=== PATIENT | female | born 1955 | race Caucasian/White ===

== ENCOUNTER → 2016-12-12 | Outpatient (CLI) | payer MEDICARE ==
[~2016-12-12] MED LIST: ALPR0.5T99 PO; AUGM875 PO; BUPR150CR PO; BUPR150T3 PO; CEPH500C PO; CLON2TAB PO; DICL50 PO; DICY1TAB26 PO; GABA300 PO; HYDR-2768 PO; HYDR25TA5 PO; LIBRAX PO; LOMO PO; LOMO2.5T PO; METR250; NEUR300C PO; PERC10TA27 PO; PHEN12.5 PO; POTA-163 PO; PREV15CA15 PO; PREV30CA36 PO; PROM25TA5 PO; SERT-129 PO; SULF400T20 PO; SULF500T35 PO; TYLETAB36 PO; VITA500030 CHEW; VOLTAREN PO; WELC625T2 PO; XANA1TAB2 PO
[2016-12-12 13:05] LABS: AUTOMATED NEUTROPHIL # 3.5 TH/MM3 (1.8-7.7); BASOPHIL % 0.7 % (0.0-2.0); EOSINOPHIL # 0.2 TH/MM3 (0-0.4); EOSINOPHIL % 3.7 % (0.0-4.0); HEMATOCRIT 39.8 % (35.0-46.0); LYMPH % 27.7 % (9.0-44.0); LYMPHOCYTE # 1.6 TH/MM3 (1.0-4.8); MEAN CELL VOLUME 85.5 FL (80.0-100.0); MEAN CORPUSCULAR HEMOGLOBIN 28.7 PG (27.0-34.0); MEAN CORPUSCULAR HGB CONC 33.5 % (32.0-36.0); NEUT % 60.9 % (16.0-70.0); PLATELET COUNT 212 TH/MM3 (150-450); RED BLOOD COUNT 4.65 MIL/MM3 (4.00-5.30); RED CELL DISTRIBUTION WIDTH 15.7 % (11.6-17.2); WHITE BLOOD COUNT 5.8 TH/MM3 (4.0-11.0)
[2016-12-12 13:15] LABS: HEMO FLAGS AUTO DIFF
[2016-12-12 13:22] LABS: ANION GAP 8 MEQ/L (5-15); AST (GOT) 12 U/L (15-37); BICARBONATE 27.3 MEQ/L (21.0-32.0); BLOOD UREA NITROGEN 21 MG/DL (7-18); CHLORIDE 104 MEQ/L (98-107); GLOMERULAR FILTRATION RATE 58 ML/MIN (>89); GLUCOSE,FASTING 87 MG/DL (74-99); POTASSIUM 3.9 MEQ/L (3.5-5.1); SODIUM (NA) 139 MEQ/L (136-145)
[2016-12-12 13:45] LABS: ALKALINE PHOSPHATASE 79 U/L (45-117); ALT (GPT) 22 U/L (10-53); HDL CHOLESTEROL 37.6 MG/DL (40.0-60.0); LDL CHOLESTEROL 93 MG/DL (0-99); THYROXINE (T4) 10.9 MCG/DL (4.8-13.9); TOTAL BILIRUBIN ADULT 0.5 MG/DL (0.2-1.0)
[2016-12-12 14:10] LABS: PLATELET ESTIMATE SMEAR NORMAL (NORMAL); PLATELET MORPHOLOGY NORMAL (NORMAL); SCAN/DIFF AUTO DIFF CONFIRMED
[2016-12-12 15:39] LABS: HEMOGLOBIN A1a 0.8 %; HEMOGLOBIN A1b 1.3 %; HEMOGLOBIN Ao 87.4 %; HEMOGLOBIN LA1C 1.9 %; HEMOGLOBIN P3 4.7 %
== END ==
LOC: PLAB 11:22
PROVIDERS: ATTEND Family Medicine
DX: I10 Essential (primary) hypertension (principal); E78.2 Mixed hyperlipidemia; E03.8 Other specified hypothyroidism; E55.9 Vitamin D deficiency, unspecified; Z79.899 Other long term (current) drug therapy
CPT/HCPCS: 36415; 80053; 80061; 82306; 83036; 84436; 84443; 84480; 85025

== ENCOUNTER 2017-01-26 12:05 | Observation (INO) | payer MEDICARE ==
[2017-01-26] VITALS (8 sets, daily range): BP systolic 116–127; BP diastolic 57–81; PULSE 82–99; RESP 16–19; TEMP 98.8–98.9; O2SAT 92–100
[~2017-01-26] VITALS: Ht 165.1 cm; Wt 178.4 kg
[~2017-01-26 12:05] MED LIST changes: -BUPR150CR PO; -CEPH500C PO; -HYDR25TA5 PO; -LOMO2.5T PO; -NEUR300C PO; -POTA-163 PO; -PREV15CA15 PO; -PROM25TA5 PO; -SERT-129 PO; -TYLETAB36 PO; -VITA500030 CHEW; -VOLTAREN PO; -XANA1TAB2 PO
[2017-01-26] MEDS ORDERED: SULFAMETHOXAZOLE-TRIMETHOPRIM DS 800-160 MG TAB PO ONE (12:30)
[2017-01-26] MEDS ORDERED: ACETAMINOPHEN/HYDROcodone 325 MG/5 MG TAB PO ONE (12:30)
[2017-01-26] MEDS ORDERED: ASPIRIN 325 MG TAB PO ONE (12:30)
[2017-01-26] MEDS ORDERED: SODIUM CHLORIDE 0.9% FLUSH 10 ML FLUSH IVF PRN (12:30)
--- NOTE | 2017-01-26 12:39 | PD ---
HPI Chief Complaint: Chest Pain Time Seen by Provider: 12:14 Travel History International Travel<30 days: No Contact w/Intl Traveler<30days: No Traveled to known affect area: No History of Present Illness HPI This patient complains of an infected lesion on her left foot. She's had a corn -type lesion on the left foot that she's had for several months. However does become reddened and more painful lately. However she also mentioned she had 2 different spells of chest pain this morning. Located in the left upper chest. Each lasted about 2 minutes and resolved. No alleviating factors. It was not exertional. She denies history of cardiac disease. She said she had a normal stress test many years ago and nothing recent. No shortness of breath or fever. Severity was moderate. PFSH Past Medical History Arthritis: Yes Asthma: No Autoimmune Disease: No Blood Disorders: No Anxiety: Yes Depression: Yes Heart Rhythm Problems: No Cancer: Yes (RIGHT BREAST MARCH 2007, SKIN CANCER APRIL 2007) Cardiovascular Problems: Yes High Cholesterol: No Chemotherapy: No Chest Pain: No Congestive Heart Failure: No COPD: No Cerebrovascular Accident: No Diabetes: No Diminished Hearing: No Diverticulitis: Yes Endocrine: No Fibromyalgia: Yes Gastrointestinal Disorders: Yes (IBS, COLITIS, E. COLI SINCE NOVEMBER) Glaucoma: No Genitourinary: Yes Headaches: Yes Hepatitis: No Hiatal Hernia: Yes Hypertension: Yes Immune Disorder: Yes Implanted Vascular Access Dvce: Yes Musculoskeletal: Yes (LEFT LEG SWELLING SOMETIMES) Neurologic: Yes (PERIPHERAL NEUROPATHY, FROM SHINGLES) Psychiatric: Yes Reproductive: No Respiratory: No Immunizations Current: No Migraines: Yes Radiation Therapy: No Seizures: No Sickle Cell Disease: No Thyroid Disease: No Menopausal: Yes Past Surgical History Abdominal Surgery: Yes (HERNIA REPAIR WITH MESH) Body Medical Devices: 2005 HERNIA REPAIR MESH. Cardiac Surgery: No Cholecystectomy: Yes Eye Surgery: Yes (CATARACTS) Gynecologic Surgery: Yes (TUMOR RT OVARY) Hysterectomy: Yes Oral Surgery: No Pacemaker: No Other Surgery: Yes (SKIN CANCER REMOVED RT BREAST 05/13/2007) Social History Alcohol Use: No Tobacco Use: No Substance Use: No Allergies-Medications (Allergen,Severity, Reaction): Coded Allergies: Banana (Verified Allergy, Severe, RASH, 01/26/17) Levaquin (Verified Allergy, Intermediate, SEVERE DIAHREA, SEVERE NAUSEA, ) Reported Meds & Prescriptions Reported Meds & Active Scripts Active Reported Sertraline (Sertraline HCl) 100 Mg Tab 100 Mg PO BID Clonazepam 2 Mg Tab 2 Mg PO HS Xanax (Alprazolam) 1 Mg Tab 1 Mg PO Q8H PRN Wellbutrin SR 12 HR (Bupropion HCl) 150 Mg Tab 150 Mg PO Q12HR Tylenol-Codeine #4 (Acetaminophen-Codeine) 300-60 mg Tab 1 Tab PO Q4H PRN Phenergan (Promethazine HCl) 25 Mg Tab 25 Mg PO DIRECTED PRN Lomotil (Diphenoxylate-Atropine) 2.5-0.025 Mg Tab 1 Tab PO DIRECTED PRN Librax (Chlordiazepoxide/Clidinium) 5-2.5 Mg Cap 1 Cap PO DIRECTED Neurontin (Gabapentin) 300 Mg Cap 3 Cap PO BID Vitamin D3 (Cholecalciferol) 5,000 Unit Chew 5,000 Units CHEW DAILY [Voltaren] 75 Mg PO BID Prevacid (Lansoprazole) 15 Mg Capdr 20 Mg PO DAILY Potassium Chloride ER (Potassium Chloride) 20 Meq Tab 20 Meq PO TID Hydrochlorothiazide 25 Mg Tab 25 Mg PO DAILY Review of Systems General / Constitutional: No: Fever Eyes: No: Visual changes HENT: No: Headaches Cardiovascular: Positive: Chest Pain or Discomfort Respiratory: No: Shortness of Breath Gastrointestinal: No: Abdominal Pain Genitourinary: No: Dysuria Musculoskeletal: Positive: Pain Skin: No Rash Neurologic: No: Weakness Psychiatric: No: Depression Endocrine: No: Polydipsia Hematologic/Lymphatic: No: Easy Bruising Physical Exam Narrative GENERAL: Well-nourished, well-developed patient in no apparent distress. SKIN: Warm and dry. HEAD: Atraumatic. Normocephalic. EYES: Pupils equal and round. No scleral icterus. No injection or drainage. ENT: No nasal bleeding or discharge. Mucous membranes pink and moist. NECK: Trachea midline. No JVD. CARDIOVASCULAR: Regular rate and rhythm. No murmur appreciated. RESPIRATORY: No accessory muscle use. Clear to auscultation. Breath sounds equal bilaterally. GASTROINTESTINAL: Abdomen soft, non-tender, nondistended. Hepatic and splenic margins not palpable. Morbidly obese MUSCULOSKELETAL: No obvious deformities. No clubbing. No cyanosis. No edema. She has a heaped up area of thickened skin on the mid medial margin of the left foot with some surrounding macular erythema. No fluctuance or drainage. NEUROLOGICAL: Awake and alert. No obvious cranial nerve deficits. Motor grossly within normal limits. Normal speech. PSYCHIATRIC: Appropriate mood and affect; insight and judgment normal. Data Data Last Documented VS Vital Signs Date Time Temp Pulse Resp B/P Pulse Ox O2 Delivery O2 Flow Rate FiO2 01/26/17 12:50 94 01/26/17 12:48 99 16 Room Air 01/26/17 12:05 98.8 127/77 Orders Electrocardiogram (01/26/17 12:24) Basic Metabolic Panel (Bmp) (01/26/17 12:24) Ckmb (Isoenzyme) Profile (01/26/17 12:24) Complete Blood Count With Diff (01/26/17 12:24) Prothrombin Time / Inr (Pt) (01/26/17 12:24) Act Partial Throm Time (Ptt) (01/26/17 12:24) Troponin I (01/26/17 12:24) Chest, Single Ap (01/26/17 12:24) Ecg Monitoring (01/26/17 12:24) Iv Access Insert/Monitor (01/26/17 12:24) Oximetry (01/26/17 12:24) Aspirin (Aspirin) (01/26/17 12:30) Sodium Chloride 0.9% Flush (Ns Flush) (01/26/17 12:30) Acetamin-Hydrocod 325-5 Mg (Baxter 5-325 (01/26/17 12:30) Sulfamet-Trimeth Ds 800-160 Mg (Bactrim (01/26/17 12:30) Place In Observation (01/26/17 13:27) Activity Bed Rest With Brp (01/26/17 13:27) Vital Signs (Adult) Q4H (01/26/17 13:27) Cardiac Rhythm .As Directed (01/26/17 13:27) ^ Notify Dr: Other .PRN (01/26/17 13:27) ^ Notify . Parameters (01/26/17 13:27) Resp Oxygen Nasal Cannula (01/26/17 ) Diet Heart Healthy (01/26/17 Lunch) Ckmb (Isoenzyme) Profile (01/26/17 15:30) Ckmb (Isoenzyme) Profile (01/26/17 18:30) Troponin I (01/26/17 15:30) Troponin I (01/26/17 18:30) Electrocardiogram (01/26/17 15:30) Electrocardiogram (01/26/17 18:30) ^ Obtain (01/26/17 13:27) Sodium Chloride 0.9% Flush (Ns Flush) (01/26/17 13:30) Sodium Chloride 0.9% Flush (Ns Flush) (01/26/17 21:00) Acetaminophen (Tylenol) (01/26/17 13:30) Ondansetron Inj (Zofran Inj) (01/26/17 13:30) Pantoprazole (Protonix) (01/27/17 09:00) Nitroglycerin Sl (Nitrostat Sl) (01/26/17 13:30) Aspirin (Aspirin) (01/27/17 09:00) Grab Hooker / Telemetry KATIA.Q8H (01/26/17 13:27) Scd Bilateral/Knee High KATIA.BID (01/26/17 13:27) Jean Bilateral/Knee High KATIA.QSHIFT (01/26/17 13:27) Labs Laboratory Tests Test 01/26/17 12:30 White Blood Count 11.7 TH/MM3 Red Blood Count 4.57 MIL/MM3 Hemoglobin 13.2 GM/DL Hematocrit 39.1 % Mean Corpuscular Volume 85.6 FL Mean Corpuscular Hemoglobin 28.9 PG Mean Corpuscular Hemoglobin 33.7 % Concent Red Cell Distribution Width 14.9 % Platelet Count 212 TH/MM3 Mean Platelet Volume 7.8 FL Neutrophils (%) (Auto) 91.0 % Lymphocytes (%) (Auto) 2.7 % Monocytes (%) (Auto) 4.1 % Eosinophils (%) (Auto) 0.0 % Basophils (%) (Auto) 2.2 % Neutrophils # (Auto) 10.6 TH/MM3 Lymphocytes # (Auto) 0.3 TH/MM3 Monocytes # (Auto) 0.5 TH/MM3 Eosinophils # (Auto) 0.0 TH/MM3 Basophils # (Auto) 0.3 TH/MM3 CBC Comment DIFF FINAL Differential Comment Prothrombin Time 11.2 SEC Prothromb Time International 1.0 RATIO Ratio Activated Partial 25.7 SEC Thromboplast Time Sodium Level 139 MEQ/L Potassium Level 3.1 MEQ/L Chloride Level 100 MEQ/L Carbon Dioxide Level 30.8 MEQ/L Anion Gap 8 MEQ/L Blood Urea Nitrogen 17 MG/DL Creatinine 1.10 MG/DL Estimat Glomerular Filtration 51 ML/MIN Rate Random Glucose 148 MG/DL Calcium Level 8.7 MG/DL Total Creatine Kinase 91 U/L Troponin I 0.02 NG/ML MDM Medical Decision Making Medical Screen Exam Complete: Yes Emergency Medical Condition: Yes Medical Record Reviewed: Yes Differential Diagnosis Differential diagnosis includes DE, angina, pericarditis, pleurisy, GERD, anxiety. Narrative Course I have reviewed the patient's electronic medical record. Patient has not been here for many years. No chest pain evaluations. I reviewed her EKG on file from 2010 but [address] depressions in lateral leads IV placed I reviewed the EKG which shows sinus rhythm without ST elevation. However there are some downsloping ST depression in V4 and V5 I reviewed the chest x-ray which shows compensated cardiomegaly Extended cardiac monitoring shows sinus rhythm without ectopy CBC is normal Metabolic profile is normal CK is normal Troponin is normal Coagulation studies are normal I gave her an aspirin and a pain pill and a Bactrim DS I reviewed the case in detail with hospitalist's and patient will be an observation in the chest pain center to rule out cardiac cause of her symptoms. Significance of her EKG findings is unclear. Currently pain-free Diagnosis Primary Impression: Chest pain in adult Admitting Information Admitting Physician Requests: Observation Mars Walter MD Jan 26, 2017 12:39
[2017-01-26 12:41] LABS: AUTOMATED NEUTROPHIL # 10.6 TH/MM3 (1.8-7.7); BASOPHIL # 0.3 TH/MM3 (0-0.2); BASOPHIL % 2.2 % (0.0-2.0); HEMATOCRIT 39.1 % (35.0-46.0); LYMPH % 2.7 % (9.0-44.0); LYMPHOCYTE # 0.3 TH/MM3 (1.0-4.8); MEAN CELL VOLUME 85.6 FL (80.0-100.0); MEAN CORPUSCULAR HEMOGLOBIN 28.9 PG (27.0-34.0); MEAN CORPUSCULAR HGB CONC 33.7 % (32.0-36.0); MONO % 4.1 % (0.0-8.0); PLATELET COUNT 212 TH/MM3 (150-450); RED BLOOD COUNT 4.57 MIL/MM3 (4.00-5.30); RED CELL DISTRIBUTION WIDTH 14.9 % (11.6-17.2); WHITE BLOOD COUNT 11.7 TH/MM3 (4.0-11.0)
[2017-01-26 12:47] LABS: HEMO FLAGS DIFF FINAL
[2017-01-26 12:52] LABS: POTASSIUM 3.1 MEQ/L (3.5-5.1)
[2017-01-26 12:55] LABS: BICARBONATE 30.8 MEQ/L (21.0-32.0)
[2017-01-26 12:58] LABS: APTT (PATIENT) 25.7 SEC (24.3-30.1); PROTHROMBIN TIME - PATIENT 11.2 SEC (9.8-11.6)
--- NOTE | 2017-01-26 12:58 | RADHPO ---
EXAM DATE/TIME: 01/26/2017 12:38 [facility] COMPARISON: No previous studies available for comparison. INDICATIONS : Cough, chest discomfort. MEDICAL HISTORY : None. SURGICAL HISTORY : None. ENCOUNTER: Initial ACUITY: 2 days PAIN SCORE: 2/10 LOCATION: Bilateral chest FINDINGS: A single view of the chest demonstrates the lungs to be symmetrically aerated without evidence of mas s, infiltrate or effusion. Heart size is prominent but well compensated. Osseous structures are inta ct. CONCLUSION: 1. Heart size is prominent but well compensated. 2. Lungs are clear. Gurinder Arechiga MD on January 26, 2017 at 12:55 Board Certified Radiologist. This report was verified electronically.
[2017-01-26] MEDS ORDERED: CLON2TAB PO (13:00)
[2017-01-26] MEDS ORDERED: POTA-163 PO (13:00)
[2017-01-26] MEDS ORDERED: TYLETAB36 PO (13:00)
[2017-01-26] MEDS ORDERED: VITA500030 CHEW (13:00)
[2017-01-26] MEDS ORDERED: PREV15CA15 PO (13:00)
[2017-01-26] MEDS ORDERED: PROM25TA5 PO (13:00)
[2017-01-26] MEDS ORDERED: HYDR25TA5 PO (13:00)
[2017-01-26] MEDS ORDERED: BUPR150CR PO (13:00)
[2017-01-26] MEDS ORDERED: XANA1TAB2 PO (13:00)
[2017-01-26] MEDS ORDERED: SERT-129 PO ×2 (13:00)
[2017-01-26] MEDS ORDERED: LIBRAX PO (13:00)
[2017-01-26] MEDS ORDERED: VOLTAREN PO (13:00)
[2017-01-26] MEDS ORDERED: LOMO2.5T PO (13:00)
[2017-01-26] MEDS ORDERED: NEUR300C PO (13:00)
[2017-01-26] MEDS ORDERED: NITROGLYCERIN 0.4 MG SL 25 TABS/BTL SL PRN (13:30)
[2017-01-26] MEDS ORDERED: SODIUM CHLORIDE 0.9% FLUSH 10 ML FLUSH IV FLUSH PRN ×2 (13:30→17:00)
[2017-01-26] MEDS ORDERED: ONDANSETRON HCL 4 MG/2 ML VIAL IV PRN (13:30)
--- NOTE | 2017-01-26 15:12 | HHI.HP ---
[facility] Primary Care Physician Mann Parra, DO Admission Diagnosis chest pain Diagnoses: Travel History International Travel<30 Days: No Contact w/Intl Traveler <30 Da: No Traveled to Known Affected Are: No History of Present Illness This report is in ERROR Please disregard this report and all prior copies ! This report is in ERROR Please disregard this report and all prior copies ! This report is in ERROR Please disregard this report and all prior copies ! Past Family Social History Allergies: Coded Allergies: Banana (Verified Allergy, Severe, RASH, 01/26/17) Levaquin (Verified Allergy, Intermediate, SEVERE DIAHREA, SEVERE NAUSEA, ) Physical Exam Vital Signs Vital Signs Date Time Temp Pulse Resp B/P Pulse Ox O2 Delivery O2 Flow Rate FiO2 01/26/17 12:50 94 01/26/17 12:48 99 16 94 Room Air 01/26/17 12:05 98.8 99 16 127/77 99 Laboratory Laboratory Tests Test 01/26/17 12:30 White Blood Count 11.7 Red Blood Count 4.57 Hemoglobin 13.2 Hematocrit 39.1 Mean Corpuscular Volume 85.6 Mean Corpuscular Hemoglobin 28.9 Mean Corpuscular Hemoglobin 33.7 Concent Red Cell Distribution Width 14.9 Platelet Count 212 Mean Platelet Volume 7.8 Neutrophils (%) (Auto) 91.0 Lymphocytes (%) (Auto) 2.7 Monocytes (%) (Auto) 4.1 Eosinophils (%) (Auto) 0.0 Basophils (%) (Auto) 2.2 Neutrophils # (Auto) 10.6 Lymphocytes # (Auto) 0.3 Monocytes # (Auto) 0.5 Eosinophils # (Auto) 0.0 Basophils # (Auto) 0.3 CBC Comment DIFF FINAL Differential Comment Prothrombin Time 11.2 Prothromb Time International 1.0 Ratio Activated Partial 25.7 Thromboplast Time Sodium Level 139 Potassium Level 3.1 Chloride Level 100 Carbon Dioxide Level 30.8 Anion Gap 8 Blood Urea Nitrogen 17 Creatinine 1.10 Estimat Glomerular Filtration 51 Rate Random Glucose 148 Calcium Level 8.7 Total Creatine Kinase 91 Troponin I 0.02 Result Diagram: 01/26/17 1230 01/26/17 123 Jaclyn Montenegro Jan 26, 2017 15:12 Troponin I 0.02 Result Diagram: 01/26/17 1230 01/26/17 Katie0 Jaclyn Montenegro Jan 26, 2017 15:12
--- NOTE | 2017-01-26 16:49 | HHI.PR ---
Addendum to Inpatient Note Addendum Reason: Additional Documentation Additional Information Patient was evaluated by Dr. Rodriguez and myself as the patient was initially admitted to chest pain center, but we were informed by Dr. Parra, patient's PCP, that he is going to take over care of the patient and he will do H&P. We were informed Dr. Rock is also seeing the patient. Jaclyn Montenegro Jan 26, 2017 16:49
[2017-01-26] MEDS: ASPIRIN EC 81 MG TABEC PO SCH (17:00)
[2017-01-26] MEDS ORDERED: PROMETHAZINE HCL 25 MG TAB PO PRN (17:00)
[2017-01-26] MEDS ORDERED: ONDANSETRON HCL 4 MG/2 ML VIAL IVP PRN (17:00)
[2017-01-26] MEDS ORDERED: POTASSIUM CHLORIDE 20 MEQ CONTROLLED RELEASE TAB PO ONE (17:30)
--- NOTE | 2017-01-26 18:27 | HHI.HP ---
History of Present Illness Primary Care Physician Mann Parra, DO Admission Diagnosis chest pain Diagnoses: History of Present Illness pt came to ED with foot ulcer pain while in ED she mentioned that she had had a cough x 3 weeks and just today she had chest pain with cough she denies sob diaphoresis or exerrtional dyspena Review of Systems Cardiovascular: COMPLAINS OF: Chest pain Integumentary: COMPLAINS OF: Abnormal pigmentation, Pruritus, Rash, Nail changes, Breast masses, Breast skin changes, Nipple discharge Past Family Social History Allergies: Coded Allergies: Banana (Verified Allergy, Severe, RASH, 01/26/17) Levaquin (Verified Allergy, Intermediate, SEVERE DIAHREA, SEVERE NAUSEA, ) Past Medical History morbid obesity severe chronic lymphadema anemia of chronic disease depression hypertension IBS diabetes Past Surgical History bilateral shoulder repairs cholecystectomy Reported Medications Current Medications Medications (Trade) Dose Ordered Sig/Karen Route PRN Reason Start Time Stop Time Status Last Admin Dose Admin Sodium Chloride (NS Flush) 2 ml UNSCH PRN IV FLUSH FLUSH AFTER USING IV ACCESS 01/26/17 13:30 Sodium Chloride (NS Flush) 2 ml BID IV FLUSH 01/26/17 21:00 Acetaminophen (Tylenol) 500 mg Q4H PRN PO HEADACHE 01/26/17 13:30 Ondansetron HCl (Zofran Inj) 4 mg Q6H PRN IV NAUSEA 01/26/17 13:30 Pantoprazole Sodium (Protonix) 40 mg DAILY PO 01/27/17 09:00 Nitroglycerin (Nitrostat Sl) 0.4 mg Q5M PRN SL CHEST PAIN 01/26/17 13:30 Aspirin (Aspirin) 325 mg DAILY PO 01/27/17 09:00 Sodium Chloride (NS Flush) 2 ml UNSCH PRN IV FLUSH FLUSH AFTER USING IV ACCESS 01/26/17 17:00 Sodium Chloride (NS Flush) 2 ml BID IV FLUSH 01/26/17 21:00 Ondansetron HCl (Zofran Inj) 4 mg Q6H PRN IVP NAUSEA OR VOMITING 01/26/17 17:00 Promethazine HCl (Phenergan) 25 mg Q4H PRN PO NAUSEA 01/26/17 17:00 01/26/17 17:18 Aspirin (Ecotrin Ec) 81 mg DAILY PO 01/26/17 17:00 Pravastatin Sodium (Pravachol) 20 mg HS PO 01/26/17 21:00 Metoprolol Tartrate (Lopressor) 25 mg Q12HR PO 01/26/17 21:00 Active Ordered Medications Current Medications Medications (Trade) Dose Ordered Sig/Karen Route PRN Reason Start Time Stop Time Status Last Admin Dose Admin Sodium Chloride (NS Flush) 2 ml UNSCH PRN IV FLUSH FLUSH AFTER USING IV ACCESS 01/26/17 13:30 Sodium Chloride (NS Flush) 2 ml BID IV FLUSH 01/26/17 21:00 Acetaminophen (Tylenol) 500 mg Q4H PRN PO HEADACHE 01/26/17 13:30 Ondansetron HCl (Zofran Inj) 4 mg Q6H PRN IV NAUSEA 01/26/17 13:30 Pantoprazole Sodium (Protonix) 40 mg DAILY PO 01/27/17 09:00 Nitroglycerin (Nitrostat Sl) 0.4 mg Q5M PRN SL CHEST PAIN 01/26/17 13:30 Aspirin (Aspirin) 325 mg DAILY PO 01/27/17 09:00 Sodium Chloride (NS Flush) 2 ml UNSCH PRN IV FLUSH FLUSH AFTER USING IV ACCESS 01/26/17 17:00 Sodium Chloride (NS Flush) 2 ml BID IV FLUSH 01/26/17 21:00 Ondansetron HCl (Zofran Inj) 4 mg Q6H PRN IVP NAUSEA OR VOMITING 01/26/17 17:00 Promethazine HCl (Phenergan) 25 mg Q4H PRN PO NAUSEA 01/26/17 17:00 01/26/17 17:18 Aspirin (Ecotrin Ec) 81 mg DAILY PO 01/26/17 17:00 Pravastatin Sodium (Pravachol) 20 mg HS PO 01/26/17 21:00 Metoprolol Tartrate (Lopressor) 25 mg Q12HR PO 01/26/17 21:00 Family History father with alzheimers disease mother with bowel disease Social History non smoker occ drinker Physical Exam Vital Signs Vital Signs Date Time Temp Pulse Resp B/P Pulse Ox O2 Delivery O2 Flow Rate FiO2 01/26/17 16:22 86 16 122/81 93 Room Air 01/26/17 16:20 93 21 01/26/17 12:50 94 01/26/17 12:48 99 16 94 Room Air 01/26/17 12:05 98.8 99 16 127/77 99 Physical Exam GENERAL: This is a well-nourished, well-developed patient, in no apparent distress. SKIN: No rashes, ecchymoses or lesions. Cool and dry. HEAD: Atraumatic. Normocephalic. No temporal or scalp tenderness. EYES: Pupils equal round and reactive. Extraocular motions intact. No scleral icterus. No injection or drainage. ENT: Nose without bleeding, purulent drainage or septal hematoma. Throat without erythema, tonsillar hypertrophy or exudate. Uvula midline. Airway patent. NECK: Trachea midline. No JVD or lymphadenopathy. Supple, nontender, no meningeal signs. CARDIOVASCULAR: Regular rate and rhythm without murmurs, gallops, or rubs. RESPIRATORY: Clear to auscultation. Breath sounds equal bilaterally. No wheezes , rales, or rhonchi. GASTROINTESTINAL: Abdomen soft, morbidly obese non-tender, nondistended. No hepato-splenomegaly, or palpable masses. No guarding. MUSCULOSKELETAL: Extremities with marked lymphadema she has a 2 cm ulcer on the arch of her left foot there is bony deformity and prominance of thhe first metatarsal head the surrounding skin is tender and erythematous NEUROLOGICAL: Awake and alert. Cranial nerves II through XII intact. Motor and sensory grossly within normal limits. . Normal speech. Laboratory Laboratory Tests Test 01/26/17 01/26/17 12:30 15:38 White Blood Count 11.7 Red Blood Count 4.57 Hemoglobin 13.2 Hematocrit 39.1 Mean Corpuscular Volume 85.6 Mean Corpuscular Hemoglobin 28.9 Mean Corpuscular Hemoglobin 33.7 Concent Red Cell Distribution Width 14.9 Platelet Count 212 Mean Platelet Volume 7.8 Neutrophils (%) (Auto) 91.0 Lymphocytes (%) (Auto) 2.7 Monocytes (%) (Auto) 4.1 Eosinophils (%) (Auto) 0.0 Basophils (%) (Auto) 2.2 Neutrophils # (Auto) 10.6 Lymphocytes # (Auto) 0.3 Monocytes # (Auto) 0.5 Eosinophils # (Auto) 0.0 Basophils # (Auto) 0.3 CBC Comment DIFF FINAL Differential Comment Prothrombin Time 11.2 Prothromb Time International 1.0 Ratio Activated Partial 25.7 Thromboplast Time Sodium Level 139 Potassium Level 3.1 Chloride Level 100 Carbon Dioxide Level 30.8 Anion Gap 8 Blood Urea Nitrogen 17 Creatinine 1.10 Estimat Glomerular Filtration 51 Rate Random Glucose 148 Calcium Level 8.7 Total Creatine Kinase 91 96 Troponin I 0.02 0.03 Result Diagram: 01/26/17 1230 01/26/17 1230 Imaging Last 48 hours Impressions Chest X-Ray 01/26/17 1224 Signed Impressions: Service Date/Time: Thursday, January 26, 2017 12:38 - CONCLUSION: 1. Heart size is prominent but well compensated. 2. Lungs are clear. Gurinder Arechiga MD Assessment and Plan Problem List: (1) Chest pain in adult Status: Acute Assessment and Plan chest pain troponin essnl neg so far pt seen in ED with dr beasley he felt she could be dcd home if third enzyme was neg will add keflex for celluitis left foot and fu am Discussed Condition With patient and cardiology Discharge Planning home Mann Parra DO Jan 26, 2017 18:27
[2017-01-26 19:10] LABS: POTASSIUM 3.4 MEQ/L (3.5-5.1)
[2017-01-26 19:13] LABS: BICARBONATE 28.7 MEQ/L (21.0-32.0)
[2017-01-26] MEDS ORDERED: PRAVASTATIN SOD 20 MG TAB PO SCH (21:00)
[2017-01-26] MEDS ORDERED: SODIUM CHLORIDE 0.9% FLUSH 10 ML FLUSH IV FLUSH SCH (21:00)
--- NOTE | 2017-01-26 21:54 | MB ---
cc: BENIGNO ADAME MD DATE OF CONSULTATION 01/26/17 HISTORY OF PRESENT ILLNESS Ms. Che is a 61 year old white female with history of morbid obesity who presented with ulcer. Today after she coughed she developed two episodes of chest discomfort which was short, lasted about two minutes. She is currently pain free. She denies any excessive shortness of breath. She had difficulty walking because of her foot ulcer. She has no previous cardiac history. PAST MEDICAL HISTORY 1. Hypertension 2. Anxiety/depression 3. Arthritis 4. Right breast cancer 5. Skin cancer 6. Colitis 7. Irritable bowel syndrome 8. Headaches 9. Hiatal hernia 10. Lower extremity lymphedema 11. Peripheral neuropathy 12. Shingles. 13. History of hernia repair 14. Cataract surgery 15. Right ovarian tumor surgery 16. Hysterectomy 17. Right breast cancer MEDICATIONS 1. Hydrochlorothiazide 2. Potassium chloride 3. Prevacid 4. Vitamin D3 5. Voltaren 6. Neurontin 7. Librax 8. Lomotil 9. Phenergan 11. Codeine 12. Wellbutrin 13. Xanax 14. Clonazepam 15. Sertraline ALLERGIES LEVAQUIN BANANAS SOCIAL HISTORY The patient continues to smoke. She does not drink alcohol. FAMILY HISTORY Negative for coronary artery disease or stroke. REVIEW OF SYSTEMS Otherwise negative. PHYSICAL EXAMINATION VITAL SIGNS: Blood pressure 122/81, pulse 86 and regular. HEENT: Negative, 2+ carotid upstrokes, no bruits. LUNGS: Clear. HEART: Regular with no murmurs, rubs or gallops ABDOMEN: Soft, no bruits. EXTREMITIES: With lymphedema, 1+ distal pulses. NEUROLOGIC: Grossly nonfocal. There is left foot ulcer at the medial aspect of the foot. CARDIOLOGY STUDIES Electrocardiogram was reviewed and showed normal sinus rhythm, interventricular conduction delay, Q waves and nonspecific ST-T changes. LABORATORY DATA Hemoglobin 13.2, potassium 3.1, creatinine 1.1, CK and troponin negative times two. DIAGNOSES 1. Chest pain 2. Hypertension 3. Left foot ulcer 4. Morbid obesity 5. Colitis 6. Lymphedema. DISPOSITION Ms. Che will be monitored on telemetry overnight. We will check cardiac enzymes and electrocardiograms. If she is ruled out for myocardial infarction by enzymes, she may be able to be discharged home tomorrow. I strongly encouraged her to quit smoking. I recommend to start therapy with aspirin, beta shayy, nitrates and statin. I will see her back for followup in our office after discharge. MD VERONICA Kenyon/ /4:51 PM /9:38 PM MARY
[2017-01-26] MEDS: METOPROLOL TARTRATE 25 MG TAB PO SCH (22:28)
[2017-01-27] VITALS (19 sets, daily range): BP systolic 112–149; BP diastolic 60–77; PULSE 71–88; RESP 18–20; TEMP 97.8–98.7; O2SAT 92–96
[2017-01-27] MEDS: CEPHALEXIN MONOHYDRATE 500 MG CAP PO SCH ×5 (01:21→21:48)
[2017-01-27] MEDS: ACETAMINOPHEN 500 MG CPLT PO PRN ×2 (01:21→05:26)
[2017-01-27 06:52] LABS: ALKALINE PHOSPHATASE 83 U/L (45-117); ALT (GPT) 64 U/L (10-53); ANION GAP 7 MEQ/L (5-15); AST (GOT) 94 U/L (15-37); BICARBONATE 29.8 MEQ/L (21.0-32.0); BLOOD UREA NITROGEN 12 MG/DL (7-18); CHLORIDE 103 MEQ/L (98-107); GLOMERULAR FILTRATION RATE 61 ML/MIN (>89); SODIUM (NA) 140 MEQ/L (136-145); TOTAL BILIRUBIN ADULT 0.6 MG/DL (0.2-1.0)
[2017-01-27 06:53] LABS: AUTOMATED NEUTROPHIL # 5.4 TH/MM3 (1.8-7.7); BASOPHIL % 0.7 % (0.0-2.0); EOSINOPHIL % 0.2 % (0.0-4.0); HEMATOCRIT 35.6 % (35.0-46.0); HEMO FLAGS DIFF FINAL; LYMPH % 15.8 % (9.0-44.0); LYMPHOCYTE # 1.1 TH/MM3 (1.0-4.8); MEAN CELL VOLUME 86.2 FL (80.0-100.0); MEAN CORPUSCULAR HEMOGLOBIN 28.6 PG (27.0-34.0); MEAN CORPUSCULAR HGB CONC 33.1 % (32.0-36.0); MONO % 8.2 % (0.0-8.0); NEUT % 75.1 % (16.0-70.0); PLATELET COUNT 173 TH/MM3 (150-450); RED BLOOD COUNT 4.13 MIL/MM3 (4.00-5.30); RED CELL DISTRIBUTION WIDTH 15.9 % (11.6-17.2); WHITE BLOOD COUNT 7.2 TH/MM3 (4.0-11.0)
[2017-01-27 07:06] LABS: POTASSIUM 2.7 MEQ/L (3.5-5.1)
[2017-01-27 07:24] LABS: WESTERGREN SEDIMENTATION RATE 46 mm/hr (0-30)
[2017-01-27] MEDS: SODIUM CHLORIDE 0.9% FLUSH 10 ML FLUSH IV FLUSH SCH ×2 (09:00→21:00)
[2017-01-27] MEDS: ASPIRIN EC 81 MG TABEC PO SCH (09:00)
[2017-01-27] MEDS: METOPROLOL TARTRATE 25 MG TAB PO SCH ×2 (09:32→21:47)
[2017-01-27] MEDS: PANTOPRAZOLE SOD 40 MG DELAYED RELEASE TAB PO SCH (09:32)
[2017-01-27] MEDS: ASPIRIN 325 MG TAB PO SCH (09:32)
[2017-01-27] MEDS ORDERED: POTASSIUM CHLORIDE 10 MEQ CONTROLLED RELEASE TAB PO SCH (10:00)
--- NOTE | 2017-01-27 10:52 | HHI.PR ---
Subjective Remarks Patient seen at bedside. Denies and CP or SOB. Left foot growth area very tender. Objective Vital Signs Date Time Temp Pulse Resp B/P Pulse Ox O2 Delivery O2 Flow Rate FiO2 01/27/17 10:13 92 Nasal Cannula 2.00 01/27/17 07:50 75 01/27/17 07:50 97.8 88 18 112/73 92 01/27/17 06:00 71 01/27/17 05:00 74 01/27/17 04:00 98.1 75 18 147/76 94 01/27/17 04:00 75 01/27/17 03:00 74 01/27/17 02:00 98.3 71 20 149/73 94 01/27/17 02:00 71 01/26/17 23:35 85 20 122/70 97 Nasal Cannula 2 01/26/17 23:00 82 19 119/69 92 Room Air 01/26/17 21:50 84 18 127/66 100 Room Air 01/26/17 21:50 Room Air 21 01/26/17 20:10 98.9 82 16 116/57 93 Room Air 01/26/17 16:22 86 16 122/81 93 Room Air 01/26/17 16:20 93 21 01/26/17 12:50 94 01/26/17 12:48 99 16 94 Room Air 01/26/17 12:05 98.8 99 16 127/77 99 I/O 01/26/17 01/26/17 01/26/17 01/27/17 01/27/17 01/27/17 07:00 15:00 23:00 07:00 15:00 23:00 Intake Total 240 ml 242 ml Output Total 600 ml Balance 240 ml -358 ml Intake Oral 240 ml 240 ml IV Total 2 ml Output Urine Total 600 ml # Voids 1 # Bowel Movements 0 Result Diagram: 01/27/17 0554 01/27/17 0554 Imaging Last 24 hours Impressions Chest X-Ray 01/26/17 1224 Signed Impressions: Service Date/Time: Thursday, January 26, 2017 12:38 - CONCLUSION: 1. Heart size is prominent but well compensated. 2. Lungs are clear. Gurinder Arechiga MD Objective Remarks GENERAL: Alert and cooperative SKIN: Warm and dry. HEAD: Normocephalic. EYES: No scleral icterus. No injection or drainage. NECK: Supple, trachea midline. No JVD or lymphadenopathy. CARDIOVASCULAR: Regular rate and rhythm without murmurs, gallops, or rubs. RESPIRATORY: Breath sounds equal bilaterally. No accessory muscle use. GASTROINTESTINAL: Abdomen soft, non-tender, nondistended. MUSCULOSKELETAL: No cyanosis, or edema. Lymphedema present. Left foot with growth BACK: Nontender without obvious deformity. No CVA tenderness. Medications and IVs Current Medications Medications (Trade) Dose Ordered Sig/Karen Route Start Time Stop Time Status Last Admin (NS Flush) 2 ml UNSCH PRN IV FLUSH 01/26/17 13:30 (NS Flush) 2 ml BID IV FLUSH 01/26/17 21:00 01/27/17 09:00 (Tylenol) 500 mg Q4H PRN PO 01/26/17 13:30 01/27/17 05:26 (Protonix) 40 mg DAILY PO 01/27/17 09:00 01/27/17 09:32 (Nitrostat Sl) 0.4 mg Q5M PRN SL 01/26/17 13:30 (Aspirin) 325 mg DAILY PO 01/27/17 09:00 01/27/17 09:32 (Zofran Inj) 4 mg Q6H PRN IVP 01/26/17 17:00 (Phenergan) 25 mg Q4H PRN PO 01/26/17 17:00 01/26/17 17:18 (Ecotrin Ec) 81 mg DAILY PO 01/26/17 17:00 (Pravachol) 20 mg HS PO 01/26/17 21:00 01/26/17 22:28 (Lopressor) 25 mg Q12HR PO 01/26/17 21:00 01/27/17 09:32 (Keflex) 500 mg Q6HR PO 01/27/17 00:00 01/27/17 05:25 (KCl) 30 meq NOW PO 01/27/17 10:00 01/27/17 11:00 (KCl) 30 meq ONCE ONCE PO 01/27/17 13:00 01/27/17 13:01 Assessment and Plan Problem List: (1) Chest pain in adult Status: Acute Plan: Cardiology consulted and following. Trop have remained negative. Denies CP. CPK is elevated will repeat. (2) Foot abscess, left Status: Acute Plan: CT ordered. Podiatry consult made (3) Hypokalemia Status: Acute Plan: Potassium 2.7. Chronic condition. 60 meq ordered for today and recheck. Scheduled for tomorrow (4) Elevated LFTs Status: Acute Plan: AST 94 and ALT 64 elevated. Most likely fatty liver disease. Most likely fatty liver disease no tenderness noted (5) Hypertension Status: Acute Plan: Continue current treatment and monitor (6) Cellulitis Status: Acute Plan: Started on Keflex yesterday. Foot very painful to palpation. Assessment and Plan Assessment and plan discussed with Marleni Joshua Jan 27, 2017 10:52
--- NOTE | 2017-01-27 11:47 | PD.POD.CON ---
Patient Intake Chief Complaint Painful callus plantar aspect of the left foot Consult Requested by Dr. Carl Reason for Consult Evaluation and treatment for possible abscess Primary Care Physician Mann Parra, DO History of Present Illness T11-year-old obese female with lymphedema presented for chest pain. She also has pain in her left midfoot. Patient usually follows as an outpatient with Dr. Lara, tab machine operator in [place] who is not on staff here at [facility]. She usually has the callus debrided. Amputation is not diabetic and is not eligible for custom inserts on her insurance. Patient has severe pronation secondary to her lymphedema and obesity and weight bears on the mid foot of the left. Patient is not on a water pill and drinks large amounts of fluid per day. Coded Allergies: Banana (Verified Allergy, Severe, RASH, 01/26/17) Levaquin (Verified Allergy, Intermediate, SEVERE DIAHREA, SEVERE NAUSEA, ) Preferred Language to Discuss: Greenlandic Barriers to Learning: None Teaching Method: Discussion Vital Signs Date Time Temp Pulse Resp B/P Pulse Ox O2 Delivery O2 Flow Rate FiO2 01/27/17 10:13 92 Nasal Cannula 2.00 01/27/17 07:50 75 01/27/17 07:50 97.8 88 18 112/73 92 01/27/17 06:00 71 01/27/17 05:00 74 01/27/17 04:00 98.1 75 18 147/76 94 01/27/17 04:00 75 01/27/17 03:00 74 01/27/17 02:00 98.3 71 20 149/73 94 01/27/17 02:00 71 01/26/17 23:35 85 20 122/70 97 Nasal Cannula 2 01/26/17 23:00 82 19 119/69 92 Room Air 01/26/17 21:50 84 18 127/66 100 Room Air 01/26/17 21:50 Room Air 21 01/26/17 20:10 98.9 82 16 116/57 93 Room Air 01/26/17 16:22 86 16 122/81 93 Room Air 01/26/17 16:20 93 21 01/26/17 12:50 94 01/26/17 12:48 99 16 94 Room Air 01/26/17 12:05 98.8 99 16 127/77 99 Pain scale used: 0-10 numeric scale Pain score: 7 Medications Current Medications Aspirin (Aspirin) 325 mg ONCE ONCE PO Last administered on 01/26/17 12:57; Start 01/26/17 at 12:30; Stop 01/26/17 at 12:31; Status DC Sodium Chloride (NS Flush) 2 ml UNSCH PRN IVF FLUSH AFTER USING IV ACCESS; Start 01/26/17 at 12:30; Stop 01/26/17 at 13:33; Status DC Acetaminophen/ Hydrocodone Bitart (Collins 5-325 Mg) 1 tab ONCE ONCE PO Last administered on 01/26/17 12:57; Start 01/26/17 at 12:30; Stop 01/26/17 at 12:31 ; Status DC Trimethoprim/ Sulfamethoxazole (Bactrim Ds 800-160 Mg) 1 tab ONCE ONCE PO Last administered on 01/26/17 12:56; Start 01/26/17 at 12:30; Stop 01/26/17 at 12:31; Status DC Sodium Chloride (NS Flush) 2 ml UNSCH PRN IV FLUSH FLUSH AFTER USING IV ACCESS ; Start 01/26/17 at 13:30 Sodium Chloride (NS Flush) 2 ml BID IV FLUSH Last administered on 01/27/17 09: 00; Start 01/26/17 at 21:00 Acetaminophen (Tylenol) 500 mg Q4H PRN PO HEADACHE Last administered on 05:26; Start 01/26/17 at 13:30 Ondansetron HCl (Zofran Inj) 4 mg Q6H PRN IV NAUSEA; Start 01/26/17 at 13:30; Stop 01/27/17 at 10:15; Status DC Pantoprazole Sodium (Protonix) 40 mg DAILY PO Last administered on 01/27/17 09 :32; Start 01/27/17 at 09:00 Nitroglycerin (Nitrostat Sl) 0.4 mg Q5M PRN SL CHEST PAIN; Start 01/26/17 at 13 :30 Aspirin (Aspirin) 325 mg DAILY PO Last administered on 01/27/17 09:32; Start 01/27/17 at 09:00 Potassium Chloride (KCl) 40 meq ONCE ONCE PO Last administered on 01/26/17 17 :18; Start 01/26/17 at 17:30; Stop 01/26/17 at 17:31; Status DC Sodium Chloride (NS Flush) 2 ml UNSCH PRN IV FLUSH FLUSH AFTER USING IV ACCESS ; Start 01/26/17 at 17:00; Stop 01/26/17 at 22:07; Status DC Sodium Chloride (NS Flush) 2 ml BID IV FLUSH ; Start 01/26/17 at 21:00; Stop at 22:07; Status DC Ondansetron HCl (Zofran Inj) 4 mg Q6H PRN IVP NAUSEA OR VOMITING; Start at 17:00 Promethazine HCl (Phenergan) 25 mg Q4H PRN PO NAUSEA Last administered on 17:18; Start 01/26/17 at 17:00 Aspirin (Ecotrin Ec) 81 mg DAILY PO ; Start 01/26/17 at 17:00 Pravastatin Sodium (Pravachol) 20 mg HS PO Last administered on 01/26/17 22:28 ; Start 01/26/17 at 21:00; Stop 01/27/17 at 10:41; Status DC Metoprolol Tartrate (Lopressor) 25 mg Q12HR PO Last administered on 01/27/17 09:32; Start 01/26/17 at 21:00 Cephalexin Monohydrate (Keflex) 500 mg Q6HR PO Last administered on 01/27/17 05:25; Start 01/27/17 at 00:00 Potassium Chloride (KCl) 30 meq NOW PO ; Start 01/27/17 at 10:00; Stop 01/27/17 at 11:00; Status DC Potassium Chloride (KCl) 30 meq ONCE ONCE PO ; Start 01/27/17 at 13:00; Stop at 13:01 Potassium Chloride (KCl) 20 meq TID PO ; Start 01/28/17 at 09:00 Past, Family & Social History Past Medical History PFSH Reviewed: Yes Cardiovascular: REPORTS HX OF: Angina, Hypertension, Peripheral vascular dz Integumentary: REPORTS HX OF: Other integumentary hx Review of Systems Constitutional: COMPLAINS OF: Pain Cardiovascular: COMPLAINS OF: Swelling legs / ankles Musculoskeletal: COMPLAINS OF: Deformaties Exam-Podiatry Constitutional General appearance: comfortable Nutritional status: overweight (morbidly obese) Orientation: alert and oriented x3 Dermatological Exam Skin Temp - Right: Within Normal Limits Skin Texture - Right: Within Normal Limits Skin Elasticity - Right: Within Normal Limits Skin Tugor - Right: Within Normal Limits Hair Growth - Right: Within Normal Limits Pigmentation - Right: Within Normal Limits Skin Temp - Left: Within Normal Limits Skin Texture - Left: Within Normal Limits Skin Elasticity - Left: Within Normal Limits Skin Tugor - Left: Within Normal Limits Hair Growth - Left: Within Normal Limits Pigmentation - Left: Within Normal Limits Foot Massess Found: Type, Size Large amount of hyperkeratotic tissue arch of left foot secondary to midfoot collapse. Sub-hyperkeratotic hemorrhage noted. No fluctuance or signs of infection. Painful Met Md: Met #1 (L) (base of the metatarsal) Vascular/Lymphatic Exam R Dorsails Pedis: Palpable L Dorsails Pedis: Palpable R Posterior Tibial: Palpable L Posterior Tibial: Palpable Present on right: Varicosities Present on left: Varicosities Neurologic Exam Details No neurological deficit Musculoskeletal Exam MusculoSkeletal Exam (Right): Is Present: 1st Met-cuneiform Exostos (plantarly) MusculoSkeletal Exam (Left): Is Present: 1st Met-cuneiform Exostos (plantarly) Muscle Strength Dorsiflexion (Right): Normal Plantarflexion (Right): Normal Inversion (Right): Normal Eversion (Right): Normal Digital (Right): Normal Dorsiflexion (Left): Normal Plantarflexion (Left): Normal Inversion (Left): Normal Eversion (Left): Normal Digital (Left): Normal Foot Range of Motion Dorsiflexion (Right): Normal Plantarflexion (Right): Normal Inversion (Right): Normal Eversion (Right): Normal Digital (Right): Normal Dorsiflexion (Left): Normal Plantarflexion (Left): Normal Inversion (Left): Normal Eversion (Left): Normal Digital (Left): Normal Joint Instability Present (Right): Pes Planus Present (Left): Pes Planus Extremities Edema: Left lower extremity: 3+, nonpitting, foot, ankle, leg Right lower extremity: 3+, nonpitting, foot, ankle, leg Locations 1 - Hyperkeratotic tissue with some hyperkeratotic hemorrhage Lab and Radiology Results Laboratory Laboratory Tests Test 01/26/17 01/27/17 12:30 05:54 White Blood Count 11.7 TH/MM3 7.2 TH/MM3 Red Blood Count 4.57 MIL/MM3 4.13 MIL/MM3 Hemoglobin 13.2 GM/DL 11.8 GM/DL Hematocrit 39.1 % 35.6 % Mean Corpuscular Volume 85.6 FL 86.2 FL Mean Corpuscular Hemoglobin 28.9 PG 28.6 PG Mean Corpuscular Hemoglobin 33.7 % 33.1 % Concent Red Cell Distribution Width 14.9 % 15.9 % Platelet Count 212 TH/MM3 173 TH/MM3 Mean Platelet Volume 7.8 FL 8.5 FL Neutrophils (%) (Auto) 91.0 % 75.1 % Lymphocytes (%) (Auto) 2.7 % 15.8 % Monocytes (%) (Auto) 4.1 % 8.2 % Eosinophils (%) (Auto) 0.0 % 0.2 % Basophils (%) (Auto) 2.2 % 0.7 % Neutrophils # (Auto) 10.6 TH/MM3 5.4 TH/MM3 Lymphocytes # (Auto) 0.3 TH/MM3 1.1 TH/MM3 Monocytes # (Auto) 0.5 TH/MM3 0.6 TH/MM3 Eosinophils # (Auto) 0.0 TH/MM3 0.0 TH/MM3 Basophils # (Auto) 0.3 TH/MM3 0.0 TH/MM3 CBC Comment DIFF FINAL DIFF FINAL Differential Comment Erythrocyte Sedimentation Rate 46 mm/hr Laboratory Tests Test 01/26/17 01/26/17 01/26/17 01/27/17 12:30 15:38 18:30 05:54 Sodium Level 139 MEQ/L 138 MEQ/L 140 MEQ/L Potassium Level 3.1 MEQ/L 3.4 MEQ/L 2.7 MEQ/L Chloride Level 100 MEQ/L 100 MEQ/L 103 MEQ/L Carbon Dioxide Level 30.8 MEQ/L 28.7 MEQ/L 29.8 MEQ/L Anion Gap 8 MEQ/L 9 MEQ/L 7 MEQ/L Blood Urea Nitrogen 17 MG/DL 16 MG/DL 12 MG/DL Creatinine 1.10 MG/DL 1.10 MG/DL 0.94 MG/DL Estimat Glomerular Filtration 51 ML/MIN 51 ML/MIN 61 ML/MIN Rate Random Glucose 148 MG/DL 120 MG/DL 91 MG/DL Calcium Level 8.7 MG/DL 8.8 MG/DL 8.9 MG/DL Total Creatine Kinase 91 U/L 96 U/L 1657 U/L Troponin I 0.02 NG/ML 0.03 NG/ML 0.04 NG/ML Creatine Kinase MB 5.0 NG/ML Creatine Kinase MB % 0.3 % Total Bilirubin 0.6 MG/DL Aspartate Amino Transf 94 U/L (AST/SGOT) Alanine Aminotransferase 64 U/L (ALT/SGPT) Alkaline Phosphatase 83 U/L Total Protein 6.8 GM/DL Albumin 3.0 GM/DL 25-Hydroxy Vitamin D Total 47.9 ng/ML Radiology Last Impressions Chest X-Ray 01/26/17 1224 Signed Impressions: Service Date/Time: Thursday, January 26, 2017 12:38 - CONCLUSION: 1. Heart size is prominent but well compensated. 2. Lungs are clear. 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 No signs of abscess or infection. Patient has a severe callus formation that can be treated on an outpatient basis by her usual tab machine operator. Informed the patient how to modify her shoe insoles to offload the area. Suggested she start on a water pill by her primary care physician and decrease her fluid intake by 10-20%. I will follow the patient as needed but she can be discharged from podiatry standpoint. Explained to the patient that callus debridement is not covered by Medicare unless the patient is diabetic. Problem Qualifiers (1) Morbid obesity: Qualified Code: E66.01 - Morbid obesity due to excess calories Gabriel Wilson DPM Jan 27, 2017 11:47
[2017-01-27] MEDS ORDERED: ACETAMINOPHEN/CODEINE 300 MG/30 MG TAB PO PRN (13:00)
[2017-01-27] MEDS ORDERED: POTASSIUM CHLORIDE 10 MEQ CONTROLLED RELEASE TAB PO ONE (13:00)
[2017-01-27 13:01] LABS: CKMB 2.5 NG/ML (0.5-3.6)
[2017-01-27] MEDS: ALPRAZolam 1 MG TAB PO PRN ×2 (13:07→21:48)
--- NOTE | 2017-01-27 16:58 | EKG ---
Date Performed: 01/26/2017 Time Performed: 15:28:06 PTAGE: 61 years EKG: Sinus arrhythmia Extensive ST-T changes are nonspecific Nonspecific intraventricular conduc tion delay Compared to prior tracing no significant change Borderline ECG PREVIOUS TRACING : 01/26/2017 12.09 DOCTOR: Erik Trivedi Interpretating Date/Time 01/27/2017 16:58:16
--- NOTE | 2017-01-27 16:58 | EKG ---
Date Performed: 01/26/2017 Time Performed: 12:09:40 PTAGE: 61 years EKG: Irregular ectopic atrial rhythm IV conduction defect Inferior infarct - age undetermined No nspecific ST changes, cannot exclude possible ischemia ST changes are more prominent from the old tra cing Abnormal ECG PREVIOUS TRACING : 11/16/2010 14.03 DOCTOR: Erik Trivedi Interpretating Date/Time 01/27/2017 16:57:02
--- NOTE | 2017-01-27 17:01 | EKG ---
Date Performed: 01/26/2017 Time Performed: 19:29:58 PTAGE: 61 years EKG: Sinus rhythm . Inferior infarct - age undetermined Anterolateral ST-T changes are nonspecific Compared to prior tr acing no significant change Abnormal ECG PREVIOUS TRACING : 01/26/2017 15.28 DOCTOR: Erik Trivedi Interpretating Date/Time 01/27/2017 16:59:05
--- NOTE | 2017-01-27 18:32 | PD.CARD.PN ---
Subjective Subjective Remarks No CP or SOB, feels better, left foot extractor tender raw stock Objective Medications Current Medications Medications (Trade) Dose Ordered Sig/Karen Route Start Time Stop Time Status Last Admin (NS Flush) 2 ml UNSCH PRN IV FLUSH 01/26/17 13:30 (NS Flush) 2 ml BID IV FLUSH 01/26/17 21:00 01/27/17 09:00 (Tylenol) 500 mg Q4H PRN PO 01/26/17 13:30 01/27/17 05:26 (Protonix) 40 mg DAILY PO 01/27/17 09:00 01/27/17 09:32 (Nitrostat Sl) 0.4 mg Q5M PRN SL 01/26/17 13:30 (Aspirin) 325 mg DAILY PO 01/27/17 09:00 01/27/17 09:32 (Zofran Inj) 4 mg Q6H PRN IVP 01/26/17 17:00 (Phenergan) 25 mg Q4H PRN PO 01/26/17 17:00 01/26/17 17:18 (Ecotrin Ec) 81 mg DAILY PO 01/26/17 17:00 (Lopressor) 25 mg Q12HR PO 01/26/17 21:00 01/27/17 09:32 (Keflex) 500 mg Q6HR PO 01/27/17 00:00 01/27/17 17:39 (KCl) 20 meq TID PO 01/28/17 09:00 (Xanax) 1 mg Q8H PRN PO 01/27/17 13:00 01/27/17 13:07 (Tylenol-Codeine #3) 2 tab Q4H PRN PO 01/27/17 13:00 01/27/17 13:06 Vital Signs / I&O Vital Signs Date Time Temp Pulse Resp B/P Pulse Ox O2 Delivery O2 Flow Rate FiO2 01/27/17 18:11 83 01/27/17 17:02 76 01/27/17 16:33 76 01/27/17 15:26 78 01/27/17 15:26 98.7 76 18 121/65 94 01/27/17 14:10 18 01/27/17 14:02 83 01/27/17 13:45 71 01/27/17 12:24 79 01/27/17 11:58 98.4 74 18 113/77 94 01/27/17 11:58 74 01/27/17 10:13 92 Nasal Cannula 2.00 01/27/17 07:50 75 01/27/17 07:50 97.8 88 18 112/73 92 01/27/17 06:00 71 01/27/17 05:00 74 01/27/17 04:00 98.1 75 18 147/76 94 01/27/17 04:00 75 01/27/17 03:00 74 01/27/17 02:00 98.3 71 20 149/73 94 01/27/17 02:00 71 01/26/17 23:35 85 20 122/70 97 Nasal Cannula 2 01/26/17 23:00 82 19 119/69 92 Room Air 01/26/17 21:50 84 18 127/66 100 Room Air 01/26/17 21:50 Room Air 21 01/26/17 20:10 98.9 82 16 116/57 93 Room Air I/O 01/26/17 01/26/17 01/26/17 01/27/17 01/27/17 01/27/17 07:00 15:00 23:00 07:00 15:00 23:00 Intake Total 240 ml 242 ml 480 ml Output Total 600 ml Balance 240 ml -358 ml 480 ml Intake Oral 240 ml 240 ml 480 ml IV Total 2 ml Output Urine Total 600 ml # Voids 1 4 # Bowel Movements 0 Physical Exam GENERAL: In NAD SKIN: Warm and dry. HEAD: Normocephalic. EYES: No scleral icterus. No injection or drainage. NECK: Supple, trachea midline. No JVD or lymphadenopathy. CARDIOVASCULAR: Regular rate and rhythm without murmurs, gallops, or rubs. RESPIRATORY: Breath sounds equal bilaterally. No accessory muscle use. GASTROINTESTINAL: Abdomen soft, non-tender, nondistended. MUSCULOSKELETAL: No cyanosis, lymphedema present. left foot ulcer with surrounding cellulitis Laboratory Laboratory Tests Test 01/26/17 01/27/17 01/27/17 18:30 05:54 11:44 Sodium Level 138 MEQ/L 140 MEQ/L Potassium Level 3.4 MEQ/L 2.7 MEQ/L Chloride Level 100 MEQ/L 103 MEQ/L Carbon Dioxide Level 28.7 MEQ/L 29.8 MEQ/L Anion Gap 9 MEQ/L 7 MEQ/L Blood Urea Nitrogen 16 MG/DL 12 MG/DL Creatinine 1.10 MG/DL 0.94 MG/DL Estimat Glomerular Filtration 51 ML/MIN 61 ML/MIN Rate Random Glucose 120 MG/DL 91 MG/DL Calcium Level 8.8 MG/DL 8.9 MG/DL Total Creatine Kinase 1657 U/L 1744 U/L Creatine Kinase MB 5.0 NG/ML 2.5 NG/ML Creatine Kinase MB % 0.3 % 0.1 % Troponin I 0.04 NG/ML White Blood Count 7.2 TH/MM3 Red Blood Count 4.13 MIL/MM3 Hemoglobin 11.8 GM/DL Hematocrit 35.6 % Mean Corpuscular Volume 86.2 FL Mean Corpuscular Hemoglobin 28.6 PG Mean Corpuscular Hemoglobin 33.1 % Concent Red Cell Distribution Width 15.9 % Platelet Count 173 TH/MM3 Mean Platelet Volume 8.5 FL Neutrophils (%) (Auto) 75.1 % Lymphocytes (%) (Auto) 15.8 % Monocytes (%) (Auto) 8.2 % Eosinophils (%) (Auto) 0.2 % Basophils (%) (Auto) 0.7 % Neutrophils # (Auto) 5.4 TH/MM3 Lymphocytes # (Auto) 1.1 TH/MM3 Monocytes # (Auto) 0.6 TH/MM3 Eosinophils # (Auto) 0.0 TH/MM3 Basophils # (Auto) 0.0 TH/MM3 CBC Comment DIFF FINAL Differential Comment Erythrocyte Sedimentation Rate 46 mm/hr Total Bilirubin 0.6 MG/DL Aspartate Amino Transf 94 U/L (AST/SGOT) Alanine Aminotransferase 64 U/L (ALT/SGPT) Alkaline Phosphatase 83 U/L Total Protein 6.8 GM/DL Albumin 3.0 GM/DL 25-Hydroxy Vitamin D Total 47.9 ng/ML Imaging Last Impressions Chest X-Ray 01/26/17 1224 Signed Impressions: Service Date/Time: Thursday, January 26, 2017 12:38 - CONCLUSION: 1. Heart size is prominent but well compensated. 2. Lungs are clear. Gurinder Arechiga MD Assessment and Plan Problem List: (1) Chest pain in adult (2) Cellulitis (3) Hypertension (4) Hypokalemia (5) Lymphedema (6) Morbid obesity Assessment and Plan No recurrent CP. CK elevated, but troponin unremarkable. No evidence of ACS. Continue abxs for left foot cellulitis. K replacement. Increase activity. Problem Qualifiers (1) Cellulitis: (2) Morbid obesity: Qualified Code: E66.01 - Morbid obesity due to excess calories Mirian Rock MD Jan 27, 2017 18:32
[2017-01-27] MEDS ORDERED: POTASSIUM CHLORIDE 20 MEQ PWD PACKET PO ONE ×2 (21:45→22:00)
[2017-01-28] VITALS (12 sets, daily range): BP systolic 97–113; BP diastolic 49–64; PULSE 74–89; RESP 18; TEMP 98–98.6; O2SAT 94–97
[2017-01-28] MEDS: CEPHALEXIN MONOHYDRATE 500 MG CAP PO SCH (04:34)
[2017-01-28 08:05] LABS: BICARBONATE 31.1 MEQ/L (21.0-32.0); POTASSIUM 3.4 MEQ/L (3.5-5.1)
[2017-01-28 09:00] LABS: BASOPHIL # 0.1 TH/MM3 (0-0.2); BASOPHIL % 0.9 % (0.0-2.0); EOSINOPHIL # 0.2 TH/MM3 (0-0.4); EOSINOPHIL % 2.9 % (0.0-4.0); HEMATOCRIT 34.7 % (35.0-46.0); LYMPH % 20.8 % (9.0-44.0); LYMPHOCYTE # 1.3 TH/MM3 (1.0-4.8); MEAN CELL VOLUME 86.2 FL (80.0-100.0); MEAN CORPUSCULAR HEMOGLOBIN 28.6 PG (27.0-34.0); MEAN CORPUSCULAR HGB CONC 33.2 % (32.0-36.0); MONO % 11.3 % (0.0-8.0); NEUT % 64.1 % (16.0-70.0); PLATELET COUNT 190 TH/MM3 (150-450); RED BLOOD COUNT 4.02 MIL/MM3 (4.00-5.30); RED CELL DISTRIBUTION WIDTH 16.2 % (11.6-17.2); WHITE BLOOD COUNT 6.2 TH/MM3 (4.0-11.0)
[2017-01-28] MEDS: METOPROLOL TARTRATE 25 MG TAB PO SCH (09:00)
[2017-01-28] MEDS ORDERED: POTASSIUM CHLORIDE 20 MEQ CONTROLLED RELEASE TAB PO SCH (09:00)
[2017-01-28] MEDS: SODIUM CHLORIDE 0.9% FLUSH 10 ML FLUSH IV FLUSH SCH (09:00)
[2017-01-28 09:04] LABS: HEMO FLAGS AUTO DIFF
[2017-01-28] MEDS: ASPIRIN EC 81 MG TABEC PO SCH (09:18)
[2017-01-28] MEDS: ASPIRIN 325 MG TAB PO SCH (09:18)
[2017-01-28] MEDS: PANTOPRAZOLE SOD 40 MG DELAYED RELEASE TAB PO SCH (09:19)
[2017-01-28] MEDS: ALPRAZolam 1 MG TAB PO PRN (09:46)
[2017-01-28] MEDS ORDERED: CEPH500C PO (11:18)
--- NOTE | 2017-01-28 11:27 | HHI.DS ---
Discharge Summary Admission Date Jan 26, 2017 at 14:18 Admitting Diagnosis chest pain Brief History This patient complains of an infected lesion on her left foot. She's had a corn -type lesion on the left foot that she's had for several months. However does become reddened and more painful lately. However she also mentioned she had 2 different spells of chest pain this morning. Located in the left upper chest. Each lasted about 2 minutes and resolved. No alleviating factors. It was not exertional. She denies history of cardiac disease. She said she had a normal stress test many years ago and nothing recent. No shortness of breath or fever. Severity was moderate. CBC/BMP: 01/28/17 0702 01/28/17 0702 Significant Findings Laboratory Tests Test 01/26/17 01/26/17 01/27/17 01/27/17 12:30 18:30 05:54 11:44 White Blood Count 11.7 TH/MM3 (4.0-11.0) Neutrophils (%) (Auto) 91.0 % 75.1 % (16.0-70.0) (16.0-70.0) Lymphocytes (%) (Auto) 2.7 % (9.0-44.0) Basophils (%) (Auto) 2.2 % (0.0-2.0) Neutrophils # (Auto) 10.6 TH/MM3 (1.8-7.7) Lymphocytes # (Auto) 0.3 TH/MM3 (1.0-4.8) Basophils # (Auto) 0.3 TH/MM3 (0-0.2) Potassium Level 3.1 MEQ/L 3.4 MEQ/L 2.7 MEQ/L (3.5-5.1) (3.5-5.1) (3.5-5.1) Creatinine 1.10 MG/DL 1.10 MG/DL (0.50-1.00) (0.50-1.00) Estimat Glomerular Filtration 51 ML/MIN (>89) 51 ML/MIN (>89) 61 ML/MIN (>89) Rate Random Glucose 148 MG/DL 120 MG/DL (74-106) (74-106) Total Creatine Kinase 1657 U/L 1744 U/L (26-192) (26-192) Creatine Kinase MB 5.0 NG/ML (0.5-3.6) Monocytes (%) (Auto) 8.2 % (0.0-8.0) Erythrocyte Sedimentation Rate 46 mm/hr (0-30) Aspartate Amino Transf 94 U/L (15-37) (AST/SGOT) Alanine Aminotransferase 64 U/L (10-53) (ALT/SGPT) Albumin 3.0 GM/DL (3.4-5.0) Test 01/27/17 01/28/17 19:05 07:02 Potassium Level 2.9 MEQ/L 3.4 MEQ/L (3.5-5.1) (3.5-5.1) Hemoglobin 11.5 GM/DL (11.6-15.3) Hematocrit 34.7 % (35.0-46.0) Monocytes (%) (Auto) 11.3 % (0.0-8.0) Creatinine 1.04 MG/DL (0.50-1.00) Estimat Glomerular Filtration 54 ML/MIN (>89) Rate PE at Discharge GENERAL: Alert and cooperative SKIN: Warm and dry. HEAD: Normocephalic. EYES: No scleral icterus. No injection or drainage. NECK: Supple, trachea midline. No JVD or lymphadenopathy. CARDIOVASCULAR: Regular rate and rhythm without murmurs, gallops, or rubs. RESPIRATORY: Breath sounds equal bilaterally. No accessory muscle use. GASTROINTESTINAL: Abdomen soft, non-tender, nondistended. MUSCULOSKELETAL: No cyanosis, or edema. Lymphedema present. Left foot with growth BACK: Nontender without obvious deformity. No CVA tenderness. Hospital Course Very pleasant 61 year old female admitted to hospital for infected left foot lesion and chest pain. This patient complains of an infected lesion on her left foot. She's had a corn-type lesion on the left foot that she's had for several months. However does become reddened and more painful lately. She is followed by podiatry Dr. Khushbu Gunter. She was treated with keflex and will be discharge home on antibiotics. Foot is very painful and was seen by Podiatry during her stay with no ffurther recommendations for her foot. She also mentioned she had 2 different spells of chest pain on admission day. Located in the left upper chest. Each lasted about 2 minutes and resolved. No alleviating factors. It was not exertional. She denies history of cardiac disease. She said she had a normal stress test many years ago and nothing recent. No shortness of breath or fever. Severity was moderate. Dr. Rock was consulted and trop remained negative. Finding no ACS. She also was hypokalemic and treated. She may benefit from lasix but I will let that be ordered in clinic. She is discharged home and instructed to get Lab work done on Sunday with follow up appt on . She has had a elevated CPK this admission which could be related to her infection but this will need to be monitored. Discharge Disposition: Discharge Home Discharge Instructions DIET: Follow Instructions for: Weight Management Activities you can perform: Regular-No Restrictions New Medications: Cephalexin (Cephalexin) 500 Mg Cap 500 MG PO Q6HR Infection #28 CAP Continued Medications: Acetaminophen-Codeine (Tylenol-Codeine #4) 300-60 mg Tab 1 TAB PO Q4H PRN PAIN Ref 0 TAB Alprazolam (Xanax) 1 Mg Tab 1 MG PO Q8H PRN ANXIETY Ref 0 TAB Bupropion HCl ER 12 HR (Wellbutrin SR 12 HR) 150 Mg Tab 150 MG PO Q12HR Control Depression Ref 0 TAB Chlordiazepoxide-Clidinium (Librax) 5-2.5 Mg Cap 1 CAP PO DIRECTED #120 Ref 0 CAP Cholecalciferol (Vitamin D3) 5,000 Unit Chew 5000 UNITS CHEW DAILY Nutritional Supplement #1 Ref 0 BOTTLE Clonazepam (Clonazepam) 2 Mg Tab 2 MG PO HS #90 Ref 0 TAB Diphenoxylate-Atropine (Lomotil) 2.5-0.025 Mg Tab 1 TAB PO DIRECTED PRN DIARRHEA Ref 0 TAB Gabapentin (Neurontin) 300 Mg Cap 3 CAP PO BID #60 Ref 0 CAP Hydrochlorothiazide (Hydrochlorothiazide) 25 Mg Tab 25 MG PO DAILY #30 Ref 0 TAB Lansoprazole (Prevacid) 15 Mg Capdr 20 MG PO DAILY Ref 0 CAP Potassium Chloride ER (Potassium Chloride ER) 20 Meq Tab 20 MEQ PO TID Electrolyte Replacement #60 Ref 0 TAB Promethazine (Phenergan) 25 Mg Tab 25 MG PO DIRECTED PRN Nausea/Vomiting Ref 0 TAB Sertraline (Sertraline) 100 Mg Tab 100 MG PO BID #30 Ref 0 TAB ([Voltaren]) 75 MG PO BID Marleni Knott Jan 28, 2017 11:27
[2017-01-28 13:26] LABS: SCAN/DIFF AUTO DIFF CONFIRMED
--- NOTE | 2017-01-28 15:29 | EKG ---
Date Performed: 01/28/2017 Time Performed: 05:15:54 PTAGE: 61 years EKG: Sinus rhythm with PAC(s) Nonspecific ST abnormalities Compared to prior tracing no significant change Abnormal EC G PREVIOUS TRACING : 01/26/2017 19.29 DOCTOR: Erik Trivedi Interpretating Date/Time 01/28/2017 15:29:20
== END 2017-01-28 12:11 | disposition home or self-care (01) ==
LOC: PHEFT 12:05 → UNDOADMOB 14:18 → PHEDA 14:18 → HCIS 01-27 00:20 → UNDODISOB 01-28 12:11
PROVIDERS: ADMIT Family Medicine; ATTEND Family Medicine
DX: R07.9 Chest pain, unspecified (principal); E11.621 Type 2 diabetes mellitus with foot ulcer; L97.529 Non-pressure chronic ulcer of other part of left foot with unspecified severity; L03.116 Cellulitis of left lower limb; L02.612 Cutaneous abscess of left foot; I10 Essential (primary) hypertension; E66.01 Morbid (severe) obesity due to excess calories; I89.0 Lymphedema, not elsewhere classified; E87.6 Hypokalemia; R79.89 Other specified abnormal findings of blood chemistry; K52.9 Noninfective gastroenteritis and colitis, unspecified; D63.8 Anemia in other chronic diseases classified elsewhere; F32.9 Major depressive disorder, single episode, unspecified; K58.9 Irritable bowel syndrome, unspecified; M19.90 Unspecified osteoarthritis, unspecified site; F41.9 Anxiety disorder, unspecified; E11.42 Type 2 diabetes mellitus with diabetic polyneuropathy; G43.909 Migraine, unspecified, not intractable, without status migrainosus; F17.200 Nicotine dependence, unspecified, uncomplicated; L85.9 Epidermal thickening, unspecified; M21.42 Flat foot [pes planus] (acquired), left foot; M21.41 Flat foot [pes planus] (acquired), right foot; Z85.3 Personal history of malignant neoplasm of breast; Z85.828 Personal history of other malignant neoplasm of skin; Z88.8 Allergy status to other drugs, medicaments and biological substances; Z91.018 Allergy to other foods; Z68.44 Body mass index [BMI] 60.0-69.9, adult
CPT/HCPCS: 71010; 76937; 80048; 80053; 82306; 82550; 82552; 82652; 84132; 84484; 85025; 85610; 85652; 85730; 93005; 99285; G0378; Q0169

== ENCOUNTER → 2017-01-30 | Outpatient (CLI) | payer MEDICARE ==
[~2017-01-30] MED LIST changes: -ALPR0.5T99 PO; -AUGM875 PO; +BUPR150CR PO; -BUPR150T3 PO; +CEPH500C PO; -DICL50 PO; -DICY1TAB26 PO; -GABA300 PO; -HYDR-2768 PO; +HYDR25TA5 PO; -LOMO PO; +LOMO2.5T PO; -METR250; +NEUR300C PO; -PERC10TA27 PO; -PHEN12.5 PO; +POTA-163 PO; +PREV15CA15 PO; -PREV30CA36 PO; +PROM25TA5 PO; +SERT-129 PO; -SULF400T20 PO; -SULF500T35 PO; +TYLETAB36 PO; +VITA500030 CHEW; +VOLTAREN PO; -WELC625T2 PO; +XANA1TAB2 PO
[2017-01-30 13:16] LABS: AUTOMATED NEUTROPHIL # 3.3 TH/MM3 (1.8-7.7); BASOPHIL # 0.1 TH/MM3 (0-0.2); BASOPHIL % 1.3 % (0.0-2.0); EOSINOPHIL # 0.4 TH/MM3 (0-0.4); EOSINOPHIL % 6.3 % (0.0-4.0); HEMATOCRIT 40.7 % (35.0-46.0); HEMO FLAGS DIFF FINAL; LYMPH % 29.5 % (9.0-44.0); LYMPHOCYTE # 1.8 TH/MM3 (1.0-4.8); MEAN CELL VOLUME 86.1 FL (80.0-100.0); MEAN CORPUSCULAR HEMOGLOBIN 28.2 PG (27.0-34.0); MEAN CORPUSCULAR HGB CONC 32.8 % (32.0-36.0); MONO % 7.6 % (0.0-8.0); NEUT % 55.3 % (16.0-70.0); PLATELET COUNT 236 TH/MM3 (150-450); RED BLOOD COUNT 4.73 MIL/MM3 (4.00-5.30); RED CELL DISTRIBUTION WIDTH 15.6 % (11.6-17.2); WHITE BLOOD COUNT 5.9 TH/MM3 (4.0-11.0)
[2017-01-30 13:40] LABS: WESTERGREN SEDIMENTATION RATE 48 mm/hr (0-30)
[2017-01-30 13:41] LABS: ALKALINE PHOSPHATASE 80 U/L (45-117); ALT (GPT) 39 U/L (10-53); ANION GAP 8 MEQ/L (5-15); AST (GOT) 25 U/L (15-37); BICARBONATE 30.1 MEQ/L (21.0-32.0); BLOOD UREA NITROGEN 23 MG/DL (7-18); CHLORIDE 102 MEQ/L (98-107); CREATINE KINASE 207 U/L (26-192); GLOMERULAR FILTRATION RATE 54 ML/MIN (>89); POTASSIUM 3.9 MEQ/L (3.5-5.1); SODIUM (NA) 140 MEQ/L (136-145); TOTAL BILIRUBIN ADULT 0.5 MG/DL (0.2-1.0)
[2017-01-30 13:55] LABS: CKMB 1.4 NG/ML (0.5-3.6)
== END ==
LOC: PLAB 10:53
PROVIDERS: ATTEND Family Medicine
DX: I10 Essential (primary) hypertension (principal); R53.83 Other fatigue; E55.9 Vitamin D deficiency, unspecified; Z79.899 Other long term (current) drug therapy
CPT/HCPCS: 36415; 80053; 82550; 82552; 85025; 85652

== ENCOUNTER 2017-03-21 12:48 | Emergency (ER) | payer MEDICARE ==
[~2017-03-21] VITALS: Ht 162.6 cm; Wt 140.0 kg
[2017-03-21 12:48] VITALS: BP 0/0; PULSE 0; RESP 0; O2SAT 0
[2017-03-21] MEDS ORDERED: LIDOCAINE HCL 2% 100 MG/5 ML SYRINGE ONE (12:54)
[2017-03-21] MEDS ORDERED: ETOMIDATE 20 MG/10 ML VIAL ONE (12:54)
[2017-03-21] MEDS ORDERED: ROCURONIUM INJ 50 MG/5 ML VIAL ONE (12:54)
[2017-03-21] MEDS ORDERED: SUCCINYLCHOLINE CHLORIDE 200 MG/10 ML VIAL ONE (12:55)
[2017-03-21] MEDS ORDERED: AMIODARONE HCL 150 MG/3 ML VIAL ONE ×2 (13:00)
[2017-03-21] MEDS ORDERED: EPINEPHrine HCL (1:10,000) 1 MG/10 ML SYRINGE ONE ×2 (13:05→13:18)
--- NOTE | 2017-03-21 14:19 | PD ---
HPI Chief Complaint: Code Blue Time Seen by Provider: 14:03 Travel History International Travel<30 days: No Contact w/Intl Traveler<30days: No Traveled to known affect area: No History of Present Illness HPI The 61 year-old woman who is at Dr. Rock's office with shortness of breath, with reported history of heart disease, when she collapsed in the waiting room. She was found to be in V. fib arrest, and was resuscitated on scene. Dr. Rock reports that they got initial return of spontaneous circulation. EMS reports that she continue to code in route, multiple cardioversions for V. fib. Multiple doses of epinephrine. She was clenching and so they were unable to intubate the placed a Combitube. No other history was immediately available. History Past Medical History Medical History: Unable to Obtain Menopausal: Yes Social History Alcohol Use: No Tobacco Use: No Allergies-Medications (Allergen,Severity, Reaction): Coded Allergies: Banana (Verified Allergy, Severe, RASH, 01/26/17) Levaquin (Verified Allergy, Intermediate, SEVERE DIAHREA, SEVERE NAUSEA, ) Reported Meds & Prescriptions Reported Meds & Active Scripts Active Cephalexin 500 Mg Cap 500 Mg PO Q6HR Reported Sertraline (Sertraline HCl) 100 Mg Tab 100 Mg PO BID Clonazepam 2 Mg Tab 2 Mg PO HS Xanax (Alprazolam) 1 Mg Tab 1 Mg PO Q8H PRN Wellbutrin SR 12 HR (Bupropion HCl) 150 Mg Tab 150 Mg PO Q12HR Tylenol-Codeine #4 (Acetaminophen-Codeine) 300-60 mg Tab 1 Tab PO Q4H PRN Phenergan (Promethazine HCl) 25 Mg Tab 25 Mg PO DIRECTED PRN Lomotil (Diphenoxylate-Atropine) 2.5-0.025 Mg Tab 1 Tab PO DIRECTED PRN Librax (Chlordiazepoxide/Clidinium) 5-2.5 Mg Cap 1 Cap PO DIRECTED Neurontin (Gabapentin) 300 Mg Cap 3 Cap PO BID Vitamin D3 (Cholecalciferol) 5,000 Unit Chew 5,000 Units CHEW DAILY [Voltaren] 75 Mg PO BID Prevacid (Lansoprazole) 15 Mg Capdr 20 Mg PO DAILY Potassium Chloride ER (Potassium Chloride) 20 Meq Tab 20 Meq PO TID Hydrochlorothiazide 25 Mg Tab 25 Mg PO DAILY Review of Systems ROS Limitations: Clinical Condition Physical Exam Narrative GENERAL: Morbidly obese 61 year-old woman, full arrest SKIN: Cool and clammy, cyanotic. HEAD: Atraumatic. Normocephalic. EYES: Fixed and dilated. ENT: No nasal bleeding or discharge. Mucous membranes pink and moist. NECK: Trachea midline. No JVD. CARDIOVASCULAR: Clammy, no spontaneous pulses. RESPIRATORY: Coarse breath sounds, no spontaneous respiratory effort. GASTROINTESTINAL: Obese. MUSCULOSKELETAL: No obvious deformities. NEUROLOGICAL: Obtunded. No purposeful movement. Data Data Last Documented VS Vital Signs Date Time Temp Pulse Resp B/P Pulse Ox O2 Delivery O2 Flow Rate FiO2 03/21/17 12:48 0 0 0/0 0 Orders Lidocaine 2% Inj (Xylocaine 2% Inj) (03/21/17 12:54) Etomidate Inj (Amidate Inj) (03/21/17 12:54) Rocuronium Inj (Zemuron Inj) (03/21/17 12:54) Succinylcholine Inj (Quelicin Inj) (03/21/17 12:55) Amiodarone Inj (Cordarone Inj) (03/21/17 13:00) Amiodarone Inj (Cordarone Inj) (03/21/17 13:00) Epinephrine (1:10,000) Inj (Epinephrine (03/21/17 13:05) Epinephrine (1:10,000) Inj (Epinephrine (03/21/17 13:18) MDM Medical Decision Making Medical Screen Exam Complete: Yes Emergency Medical Condition: Yes Differential Diagnosis Cardiac arrest, ACS, arrhythmia, PE, electrolyte abnormality, hypoglycemia, other Narrative Course Medical decision making 61-year-old woman presents emergent department cardiac arrest. Presenting rhythm was V. fib arrest. She was complaining of shortness of breath at the time. She has a history of ACS. EMS reported that she is being seen for A. fib. Family reports she has not had A. fib before. Patient with persistent PEA despite ACLS resuscitation. Bedside ultrasound shows some cardiac motion with an initial narrow regular complex PEA. Patient did have one episode of V. tach initially, was treated with cardioversion, and amiodarone. PEA persisted. Patient was initially being ventilated through Combitube. This was removed. Patient was clamping down and were unable to intubate. She was then bagged valve masked and was given paralytics. Second attempt was made using glidescope with improved positioning, and though cords able to visualize, were unable to pass a ET tube, or a bougie. At this point a 4.0 LMA was placed. During the resuscitation, oxygen saturations as high as 85 % were obtained, with end-tidal CO2 use persistently in the 30s and 40s. Given patient's history of morbid obesity, presenting complaint of shortness of breath , and now persistent PEA arrest, concern for PE. No other reversible causes of PEA were readily identified. Decision was made to proceed with emergent from a lysis. Patient was given 50 mg of IV TPA. ACLS was continued with progressive widening and slowing of her PEA rhythm. Family was invited to the bedside. Resuscitation was continued for 15-20 minutes following the initiation of TPA to give adequate time for circulation. Despite this patient had only trace cardiac motion and PEA, and further attempts resuscitation was seen by me to be futile. Patient was pronounced at 1:30 PM. Procedures Procedure Narrative Intubation: Multiple attempted intubation with a kaleidoscope were attempted. Ultimately we were unsuccessful as detailed in the medical decision making. Patient was intubated with an LMA. Diagnosis Primary Impression: Cardiac arrest Darion Sepulveda MD March 21, 2017 14:19
== END 2017-03-21 13:30 | disposition expired ==
LOC: NEPC 12:48
DX: I46.9 Cardiac arrest, cause unspecified (principal)
CPT/HCPCS: 31500; 92950; 99285; J0171; J0282; J0330